=== PATIENT | female | born 1940 | race Caucasian/White ===

== ENCOUNTER 2016-11-10 15:28 | Observation (INO) | payer OTHER ==
--- NOTE | ~2016-11-10 | HP ---
History And Physical [facility] [address] [place]. [address] NAME: THANIA CORDERO : 42 STATUS : ADM Teodoro PAT#: [id number] AGE: 76 ADM/REG DATE : 11/10/16 MR#: [id number] REPORT SERV DATE: 11/11/16 DICTATED BY: BRANDEN JOHNSON III DATE: 11/11/16 REPORT STATUS : Draft TRANSCRIBED BY: DANY DATE: 11/11/16 DATE OF ADMISSION: 11/10/2016 HISTORY OF PRESENT ILLNESS: Ms Thania Cordero is a 76-year-old white female from [place], [place] admitted for treatment of recurrent atrial fibrillation with a rapid ventricular response. The patient did well until October of 2012. At that time, the patient presented with atrial fibrillation with a rapid ventricular response. The patient was treated with intravenous diltiazem. Serial cardiac biomarkers were within normal limits. An echocardiogram demonstrated mild concentric left ventricular hypertrophy, right ventricular enlargement, mild tricuspid regurgitation, pulmonary regurgitation and findings suggestive of atrial fibrillation-flutter. The estimated right ventricular systolic pressure was normal. The patient was begun on propafenone 150 mg p.o. t.i.d. On 11/09, the patient underwent successful synchronized biphasic DC cardioversion. The patient was successfully converted from atrial fibrillation to sinus bradycardia. The patient was discharged on propafenone and apixaban. The patient subsequently did well until the day of admission. At that time, the patient was awoken with tachy palpitations. The patient denied any associated dyspnea, diaphoresis, nausea, or chest pain. The patient denied any precipitating factors. The patient claimed compliance with her CPAP. The patient denied relieving factors. Specifically, the patient denied trying of Valsalva maneuver. The patient was subsequently seen in the [facility]. Telemetry strip recordings demonstrated atrial fibrillation with a rapid ventricular response. The patient's troponin I level was less than 0.02. The patient was treated with intravenous diltiazem and apixaban. The patient was admitted for further evaluation. The patient complained of dyspnea on exertion, but could not quantitate her functional limitation. The patient denied chest pain, syncope, and pedal edema. The patient has no history of rheumatic fever or cardiac murmur. The patient's documented coronary artery disease risk factors include family history, obesity, hyperlipoproteinemia, and hypertension. PAST MEDICAL HISTORY: 1. Coronary artery disease. 2. Obesity. 3. Hyperlipoproteinemia. 4. Hypertension. 5. Insulin resistance. 6. Obstructive sleep apnea. 7. History of deep venous thrombosis. 8. Osteoarthritis. 9. Psoriasis. 10.Kyphoscoliosis. 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 12.Pulmonary hypertension. OPERATIVE PROCEDURES: 1. Status post right total knee replacement. History And Physical [address] [address] NAME: THANIA CORDERO : 42 STATUS : ADM Teodoro PAT#: [id number] AGE: 76 ADM/REG DATE : 11/10/16 MR#: [id number] REPORT SERV DATE: 11/11/16 DICTATED BY: BRANDEN JOHNSON III DATE: 11/11/16 REPORT STATUS : Draft TRANSCRIBED BY: DANY DATE: 11/11/16 2. Status post left total knee replacement. 3. Status post cholecystectomy. 4. Status post appendectomy. 5. Status post bilateral tubal ligation. 6. Status post resection of a right Akins cyst. 7. Status post parathyroidectomy. 8. Status post resection of a right breast cyst. 9. Status post bilateral cataract extractions with intra-ocular lens implants. ALLERGIES: NONE. INTOLERANCES: Negative chronotropic medications. MEDICATIONS: 1. Albuterol nebulizer, p.r.n. 2. Aspirin 325 mg p.o. daily. 3. Atorvastatin 80 mg p.o. q.h.s. 4. Cetirizine 10 mg p.o. q.h.s. 5. Cholecalciferol 2000 IU p.o. daily. 6. Dulera MDI two puffs b.i.d. 7. Nitroglycerin 0.4 mg sublingual p.r.n. 8. Propafenone SR 225 mg p.o. b.i.d. 9. Ramipril 2.5 mg p.o. daily. 10.Ubiquinol 100 mg p.o. daily. 11.Turmeric one p.o. daily. FAMILY HISTORY: Positive for myocardial infarction, stroke, cancer, diabetes mellitus, aortic aneurysm, hypertension, leukemia, anemia and arthritis. Negative for seizures, kidney disease, liver disease, and mental illness. SOCIAL HISTORY: The patient denied alcohol and tobacco use. PHYSICAL EXAMINATION: GENERAL: Physical examination demonstrated an alert, obese, older white female, in no acute distress. VITAL SIGNS: Demonstrated that she was afebrile to touch, respiratory rate was 18 breaths per minute, and blood pressure was 121/57 mmHg with a heart rate of 68 beats per minute. SKIN: Warm and dry. NECK: Supple and nontender. There was decreased range of motion. There was no appreciable lymphadenopathy or thyromegaly. There was no jugular venous distention at 90 degrees. There were no carotid bruits. CHEST: Examination of the chest demonstrated scattered basilar inspiratory crackles. There were no rhonchi, wheezes, or pleural rubs. There was symmetrical expansion of the chest. There was no use of the accessary muscles for respiration. CARDIAC: Cardiac examination demonstrated a nonpalpable apical impulse. There was a regular rhythm and rate without murmur, rub, gallop, or mid systolic click. There were no thrills or heaves. There was no hepatojugular reflux. History And Physical [address] [address] NAME: THANIA CORDERO : 42 STATUS : ADM Teodoro PAT#: [id number] AGE: 76 ADM/REG DATE : 11/10/16 MR#: [id number] REPORT SERV DATE: 11/11/16 DICTATED BY: BRANDEN JOHNSON III DATE: 11/11/16 REPORT STATUS : Draft TRANSCRIBED BY: DANY DATE: 11/11/16 ABDOMEN: Examination of the abdomen demonstrated that it was obese, soft, and protuberant. EXTREMITIES: Examination of the extremities demonstrated no pedal edema. ASSESSMENT: Ms Thania Cordero is a 76-year-old white female with four other risk factors for coronary atherosclerotic disease (i.e., family history, obesity, hyperlipoproteinemia, hypertension), history of two-vessel coronary artery disease (involving the mid portion of the left anterior descending and proximal portion of the second obtuse marginal branch of the left circumflex coronary arteries), status post percutaneous transluminal coronary angioplasty of the proximal portion of the second major diagonal branch of the left anterior descending coronary artery (12/05/2012), status post percutaneous coronary intervention with implantation of a 2.5 mm x 12 mm [employer] EES in the proximal portion of the second obtuse marginal branch of the left circumflex coronary artery (09/17/2015), mild pulmonary hypertension and status post synchronized biphasic DC cardioversion (11/09/2012); who now presents with recurrent symptomatic atrial fibrillation with a rapid ventricular response. The patient is admitted for further evaluation and therapy. LH/MODL Branden Johnson III, M.D., [place], [facility] / [id number] CC: Branden Johnson III, M.D., [place], [facility] Gino Burgess IV, M.D. Helen Furr, M.D.
[2016-11-10 14:06] LABS: BASOPHILS 0.5 %; BASOPHILS ABSOLUTE 0.03 10/3/uL (0.0-0.16); EOSINOPHILS ABSOLUTE 0.13 10/3/uL (0.0-0.53); HEMATOCRIT 48.1 % (36.0-48.0); HEMOGLOBIN 15.3 g/dL (12.0-16.0); IMMATURE GRANULOCYTES 0.3 %; IMMATURE GRANULOCYTES ABSOLUTE 0.02 10/3/uL (0.0-0.11); LYMPHOCYTES 27.8 %; LYMPHOCYTES ABSOLUTE 1.84 10/3/uL (0.67-4.30); MANUAL DIFF NO %; MEAN CORPUS HGB CONC 31.8 g/dL (32.0-36.0); MEAN CORPUSCULAR HEMOGLOB 28.5 pg (26.0-34.0); MEAN CORPUSCULAR VOLUME 89.6 fL (80-100); MEAN PLATELET VOLUME 9.8 fL (9.2-13.0); MONOCYTES 7.7 %; MONOCYTES ABSOLUTE 0.51 10/3/uL (0.21-1.20); NEUTROPHILS 61.7 %; NEUTROPHILS ABSOLUTE 4.09 10/3/uL (2.02-8.40); PLATELET COUNT 253 10/3/uL (150-400); RBC DISTRIBUTION WIDTH 13.6 % (12.0-16.0); RED CELL COUNT 5.37 10/6/uL (4.0-5.6); WHITE BLOOD CELLS 6.6 10/3/uL (4.5-10.5)
[2016-11-10 14:13] LABS: INTERNATIONAL NORMAL RATI 1.1 UNITS (-); PARTIAL THROMBO TIME 27.1 SEC (22.5-37.2)
[2016-11-10 14:16] LABS: PROTIME (NOT ORD) 13.6 SEC (12.0-14.5)
[2016-11-10 14:22] LABS: CALCIUM, SERUM 9.5 MG/DL (8.5-10.4); CHEST PAIN PROFILE TAT 0 Hrs 20 Mins; CHLORIDE, SERUM 105 MMOL/L (96-112); CO2 (CARBON DIOXIDE) 32 MMOL/L (24-34); CREATININE 0.86 MG/DL (0.55-1.02); GFR AFRICAN AMERICAN 77 ML/MIN (>=60); GFR NON AFRICAN AMERICAN 66 ML/MIN (>=60); GLUCOSE, SERUM 98 MG/DL (60-99); SODIUM, SERUM 144 MMOL/L (135-148); TROPONIN I <0.02 NG/ML (<0.05)
[2016-11-10 14:23] LABS: BUN (BLOOD UREA NITROGEN) 15 MG/DL (6-23)
[~2016-11-10 15:28] MED LIST: ALBUTEROL5 INH; ALTA2.5 PO; ASA5GR PO; ASABAYER PO; BRILINTA90 MG PO; CALTRAT600 PO; CENTRUM TAB1 TAB PO; CO Q-10100 MG PO; DSS PO; DULERA 200 MCG/13 GM INH; FISH-EPA1000 MG PO; IRON PO; IRON325 MG PO; JANTOVEN5 MG PO; LIPITOR20 PO; LIPITOR80 MG PO; LOVENOX120 SC; MAGOX4 PO; NITROSTAT0.4 MG SL; NORV10 PO; PRAVACHOL40 MG PO; PROVENTSOL INH; RYTHMOL SR225 MG PO; RYTHMOL225 MG PO; TOPXL50 PO; TUMERIC PO; TURMERIC PO; UBIQUINOL PO; VITAMIN B PO; VITAMIN D2000 UNIT PO; VITAMIN D31000 UNIT PO; ZYRTEC ALLGY10 MG PO
[2016-11-10 18:44] LABS: ALBUMIN 3.9 G/DL (3.5-5.0); ALKALINE PHOSPHATASE 114 U/L (45-117); DIRECT BILIRUBIN 0.1 MG/DL (0.0-0.4); INDIRECT BILIRUBIN(NOT ORDER) 0.3 MG/DL (0.1-0.9); SGOT(AST) 24 U/L (5-40); SGPT(ALT) 30 U/L (5-65); TOTAL BILIRUBIN 0.4 MG/DL (0-1.2); TOTAL PROTEIN 7.4 G/DL (6.0-8.5)
[2016-11-11 04:24] LABS: INTERNATIONAL NORMAL RATI 1.2 UNITS (-); PARTIAL THROMBO TIME 29.1 SEC (22.5-37.2); PROTIME (NOT ORD) 14.7 SEC (12.0-14.5)
[2016-11-11] MEDS ORDERED: ASAB PO (19:28)
[2016-11-11] MEDS ORDERED: ELIQUIS 5 MG TAB5 MG PO (19:32)
== END 2016-11-11 19:52 | disposition home or self-care (01) ==
LOC: ER 15:28 → CDU1 15:33 → CDU2 16:23
PROVIDERS: Emergency Medicine; Internal Medicine Cardiovascular Disease
DX: I25.10 Atherosclerotic heart disease of native coronary artery without angina pectoris (principal); E66.9 Obesity, unspecified; E78.5 Hyperlipidemia, unspecified; I10 Essential (primary) hypertension; G47.33 Obstructive sleep apnea (adult) (pediatric); M19.90 Unspecified osteoarthritis, unspecified site; I27.2 Other secondary pulmonary hypertension; Z90.89 Acquired absence of other organs; Z90.49 Acquired absence of other specified parts of digestive tract; Z96.653 Presence of artificial knee joint, bilateral; Z79.82 Long term (current) use of aspirin
CPT/HCPCS: 71010; 80048; 80076; 83735; 83880; 84439; 84443; 84484; 85025; 85610; 85730; 93005; 93306; 96374; 96376; 99285; A9270-GY; G0378